=== PATIENT | female | born 1980 | race Caucasian/White ===

== ENCOUNTER 2024-12-25 12:57 | Outpatient (CLI) | payer OTHER, SELFPAY ==
--- NOTE | 2024-12-25 13:00 | MM_ITS ---
WS: [id number] BILATERAL 3D TOMOSYNTHESIS DIGITAL SCREENING MAMMOGRAPHY WITH CAD CLINICAL INFORMATION: SCREENING HISTORY: Screening mammogram. No current complaints. COMPARISON: Baseline TECHNIQUE: Bilateral CC and MLO views. FINDINGS: Scattered fibroglandular densities bilaterally. Indeterminate 8 mm nodular density lower outer LEFT breast. This may represent a lymph node but no comparisons. Recommend further evaluation LEFT breast diagnostic mammography and ultrasound. Unremarkable RIGHT breast. MM/MM scr BI tomosynthesis [id number] IMPRESSION: DENSITY: There are scattered areas of fibroglandular density. BI-RADS: 0 - Incomplete: Need additional imaging evaluation. FOLLOW UP: Need Additional Imaging Recommend LEFT breast diagnostic mammography and ultrasound if persistent.
== END 2024-12-25 12:58 | disposition home or self-care (01) ==
LOC: MOBLMAM 13:00
PROVIDERS: Visit Provider Obstetrics & Gynecology
DX: Z12.31 Encounter for screening mammogram for malignant neoplasm of breast (principal); R92.323 Mammographic fibroglandular density, bilateral breasts; N63.23 Unspecified lump in the left breast, lower outer quadrant
CPT/HCPCS: 77063; 77067

== ENCOUNTER 2025-02-06 09:15 | Outpatient (CLI) | payer OTHER, SELFPAY ==
--- NOTE | 2025-02-06 09:25 | MM_ITS ---
WS: [id number] LEFT 3D TOMOSYNTHESIS DIGITAL MAMMOGRAPHY WITH CAD CLINICAL INFORMATION: L BREAST ABNORMAL MAMMOGRAM HISTORY: Additional views TECHNIQUE: 3 views of the left breast were obtained. FINDINGS: Scattered fibroglandular densities of the left breast. Persistent 8 mm nodular density lower outer LEFT breast. Ultrasound described below. ULTRASOUND BREAST LEFT TECHNIQUE: Ultrasound left breast focused area of concern. CLINICAL INFORMATION: L BREAST ABNORMAL MAMMOGRAM FINDINGS: Ultrasound lower outer LEFT breast. At the 4 o'clock position LEFT breast 4 cm from the nipple there is a lobulated hypoechoic solid lesion with irregular margins. Posterior shadowing. This is taller than wide and has a suspicious appearance. Recommend further evaluation with ultrasound-guided biopsy. MM/MM diag LT tomosynthesis [id number] IMPRESSION: DENSITY: There are scattered areas of fibroglandular density. BI-RADS: 4 - Suspicious Finding - Biopsy Should Be Considered. FOLLOW UP: US Guided Biopsy Recommended Recommend ultrasound-guided biopsy of the LEFT breast lesion
== END 2025-02-06 09:16 | disposition home or self-care (01) ==
LOC: RAD 09:19
PROVIDERS: PCP Nurse Practitioner Family; Visit Provider Nurse Practitioner Family
DX: R92.8 Other abnormal and inconclusive findings on diagnostic imaging of breast (principal); R92.322 Mammographic fibroglandular density, left breast
CPT/HCPCS: 76642; 77061; 77063

== ENCOUNTER 2025-02-19 16:01 | Emergency (ER) | payer OTHER, SELFPAY ==
[2025-02-19 16:03] VITALS: BP 162/79; PULSE 91; RESP 16; TEMP 36.9; O2SAT 99; BMI 35.3
--- NOTE | 2025-02-19 16:18 | XRR_ITS ---
PROCEDURE INFORMATION: Exam: XR Chest Exam date and time: 02/19/2025 4:20 PM Age: 44 years old Clinical indication: Chest wall pain; Additional info: Left rib pain TECHNIQUE: Imaging protocol: Radiologic exam of the chest. Views: 1 view. COMPARISON: No relevant prior studies available. FINDINGS: Lungs: Left midlung zone atelectasis or scarring. Pleural spaces: Unremarkable. No pleural effusion. No pneumothorax. Heart/Mediastinum: Unremarkable. No cardiomegaly. Bones/joints: Unremarkable. XR/XR chest 1V portable [id number] IMPRESSION: No acute cardiopulmonary findings.
[2025-02-19 16:22] VITALS: BP 155/85; PULSE 82; O2SAT 98
--- NOTE | 2025-02-19 16:22 | ED_ITS ---
Documented by User: QUE Coronado 02/19/25 16:50 HPI - Back Pain/Injury General: Chief Complaint: Back Pain/Injury Stated Complaint: L shoulder pain going down back Time Seen by Provider: 02/19/25 16:12 Source: patient Mode of arrival: ambulatory Limitations: no limitations History of Present Illness: Patient is a 44-year-old female who presents emergency department with left shoulder pain that started on 02/17. 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 Pain wraps around the left chest region, worse with deep breathing and with any movements. No direct trauma. No other symptoms of concern at this time, her vitals are stable. She has been taking lyvd-xra-mjekghj pain medications with little relief. MD elicited complaint: other (Left shoulder/rib pain) Onset (ago): day(s) Timing: constant Associated symptoms: Deny abdominal pain, chills, fever(s), nausea or vomiting Treatments prior to arrival: NSAIDS Work related injury: Yes Related Data Previous Rx's ?Medication ?Instructions ?Recorded cyclobenzaprine 5 mg tablet 5 mg PO Q8H #10 tabs 02/19 Allergies Allergy/AdvReac Type Severity Reaction Status Date / Time No Known Allergies Allergy Verified 02/19/25 16:09 Review of Systems General: Reports: 10 or more systems reviewed and unremarkable except in HPI and below Const: Denies: fever(s) or chills Card: Denies: chest pain Resp: Denies: dyspnea or productive cough GI: Denies: abdominal pain, nausea, vomiting or diarrhea : Denies: flank pain Musc: Reports: joint pain (Left shoulder) and other (Left rib pain); Denies: neck pain, back pain, extremity pain, extremity swelling, joint swelling, joint redness, joint warmth, limited range of motion or muscle weakness Skin/Breast: Denies: rash Neuro: Denies: headache(s), numbness in extremities or weakness in extremities Physical Exam Const: COMMON NORMALS: no acute distress, patient oriented x3, no limitations, healthy appearing, alert and well nourished HENMT: COMMON NORMALS: normocephalic and atraumatic HEAD & SCALP: normocephalic and atraumatic Neck/C-Spine: COMMON NORMALS: full ROM, supple and no meningeal signs Chest: OTHER: Left lateral rib tenderness to palpation without step-off deformity Resp: COMMON NORMALS: normal respiratory effort and No use of accessory muscles Extremity: COMMON NORMALS: normal to inspection, full ROM, capillary refill normal, no joint enlargement and no clubbing, cyanosis or edema NARRATIVE EXTREMITY EXAM: Tender to palpation to left scapular spine region, no signs of trauma or deformity Neuro: COMMON NORMALS: patient oriented x3, moves all extremities, no focal motor deficits and no sensory deficits noted SENSORIUM/ORIENTATION: Yes alert MENINGEAL SIGNS: Yes no meningeal signs Skin: COMMON NORMALS: no rashes or lesions noted GENERAL SKIN EXAM: no rashes or lesions noted Course Vital Signs: Vital signs: Vital Signs Temperature 98.5 F 02/19/25 16:03 Pulse Rate 79 02/19/25 16:56 Respiratory Rate 16 02/19/25 16:03 Blood Pressure 132/78 02/19/25 16:56 Pulse Oximetry 98 02/19/25 16:56 Oxygen Delivery Me thod Room Air 02/19/25 16:22 MDM - Back Pain/Injury Medical Decision Making Patient presented for work-related injury, injuring her left upper back on 02/17. X-ray is negative, point tenderness to palpation to the posterior scapular spine as well as to the left lateral ribs, making this likely a strain versus possible costochondritis. X-ray negative. Conservative treatment discussed for home. Labs Radiology Impressions Chest X-Ray 02/19/25 16:18 IMPRESSION: No acute cardiopulmonary findings. All radiology interpretation(s) finalized by discharge Discharge Plan Discharge Patient Disposition: Home Clinical Impression: Work related injury Muscle strain of left upper back Qualifiers: Encounter type: initial encounter Qualified Code(s): S29.012A - Strain of muscle and tendon of back wall of thorax, initial encounter Condition: Stable Prescriptions: New cyclobenzaprine 5 mg tablet 5 mg PO Q8H Qty: 10 0RF Discharge Orders: Discharge ED (Routine); Ordered 02/19/25 Ordered By: Alexis Daily Referrals: Luanne Johnson FNP [Primary Care Provider, Nurse Practitioner] Patient Instructions: Patient Portal & Theron Instructions Activity Restrictions/Additional Instructions: Muscle laxer's as prescribed. Ice and heat alternating. Motrin and Tylenol. Follow-up with primary care. Work note is attached. 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 [employer] Fwd Documented by User: Kal Chavez DO 02/19/25 18:10 HPI - Back Pain/Injury General: Chief Complaint: Back Pain/Injury Stated Complaint: L shoulder pain going down back Time Seen by Provider: 02/19/25 16:12 Related Data Previous Rx's ?Medication ?Instructions ?Recorded cyclobenzaprine 5 mg tablet 5 mg PO Q8H #10 tabs 02/19 Allergies Allergy/AdvReac Type Severity Reaction Status Date / Time No Known Allergies Allergy Verified 02/19/25 16:09 Course Vital Signs: Vital signs: Vital Signs Temperature 98.5 F 02/19/25 16:03 Pulse Rate 79 02/19/25 16:56 Respiratory Rate 16 02/19/25 16:03 Blood Pressure 132/78 02/19/25 16:56 Pulse Oximetry 98 02/19/25 16:56 Oxygen Delivery Me thod Room Air 02/19/25 16:22 MDM - Back Pain/Injury Medical Decision Making Patient presented for work-related injury, injuring her left upper back on 02/17. X-ray is negative, point tenderness to palpation to the posterior scapular spine as well as to the left lateral ribs, making this likely a strain versus possible costochondritis. X-ray negative. Conservative treatment discussed for home. Chart reviewed Labs Radiology Impressions Chest X-Ray 02/19/25 16:18 IMPRESSION: No acute cardiopulmonary findings. Discharge Plan Discharge Patient Disposition: Home Clinical Impression: Work related injury Muscle strain of left upper back Qualifiers: Encounter type: initial encounter Qualified Code(s): S29.012A - Strain of muscle and tendon of back wall of thorax, initial encounter Condition: Stable Prescriptions: New cyclobenzaprine 5 mg tablet 5 mg PO Q8H Qty: 10 0RF Discharge Orders: Discharge ED (Routine); Ordered 02/19/25 Ordered By: Alexis Daily Referrals: Luanne Johnson, [employer]ACHINE TENDER [Primary Care Provider, Nurse Practitioner] Patient Instructions: Patient Portal & Theron Instructions Activity Restrictions/Additional Instructions: Muscle laxer's as prescribed. Ice and heat alternating. Motrin and Tylenol. Follow-up with primary care. Work note is attached. 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
--- OUTSIDE RECORDS SUMMARY | 2025-02-19 16:28 | XMS_ITS | Data Portability ---
Author Organization [facility], [place], [facility] Address [address] [address] Assessment No assessment recorded. Plan of Treatment Reminders Order Date Submit Date Provider Last Modified By Organization Details Last Modified Time Details Appointments None recorded. Lab None recorded. Referral None recorded. Procedures None recorded. Surgeries None recorded. Imaging None recorded. Medication Orders meloxicam 7.5 mg tablet 2022 023 [facility]/Pharmacy #[id number], [address] [facility] [facility], [facility], [place], [address], 3 09:05:08 Patient TargetsNo targets recorded. Patient InstructionsNo instructions recorded. Reason for Referral None Reported. Medical Equipment None Reported. Allergies No known drug allergies Medications Name Sig Start Date Stop Date Status Note LastModified by Organization Details LastModified Time amoxicillin 500 mg capsule two times daily 2022 active Recorded 3 10:51AM by Rowena Carter PA-C, Office Visit; Refill Quantity: 0; Not Available Not Available Not Available meloxicam 7.5 mg tablet Take 1 tablet every day by oral route for 14 days. 2022 active Not Available Not Available Not Avai lable Vitals Date Recorded Body weight Body mass index (BMI) Body height Oxygen saturation Heart rate Respiratory rate Body temperature Systolic And Diastolic Provider Name and Address Organization Details Last Updated DateTime 3 19729.8 g 33.9 kg/m2 162.56 cm 99 % 78 /min 19 /min 97.1 [degF] 145/72 mm[Hg] ANKUSH HINKLE [facility], [place] 3 08:48:32 Social History None recorded. Functional Status None recorded. Mental Status None recorded. Family History Nothing Reported. Medical History No medical history recorded. Gynecological HistoryNo gynecological history recorded. Obstetrics History GPAL:G 0 P 0 0 0 0 Past Encounters Encounter ID Performer Location Encounter Start Date Encounter Closed Date Diagnosis/Indication Diagnosis SNOMED-CT Code Diagnosis ICD10 Code Diagnosis IMO Codes Diagnosis Note [id number] [facility] ([facility]) [address] [place] [address] 01/24/2023 08:33:53 01/24/2023 13:50:17 Low back pain [id number] M54.50 Will start meloxicam today. Discussed with patient that she should perform light stretches at home twice daily as well as ice/heat as tolerated. Patient was given a hand out on light back stretches to perform at home. If no improvemen t in 1 week, should follow up with walk in for re-evaluat ed. Patient verbalizes understand ing. Health Concerns Section Related Observation LastModified by Organization Detai ls LastModified Time None Recorded Concern Status LastModified by Organization Details LastModified Time None Recorded Advance Directives Directive None Recorded Payers Insurance Date Sequence Insurance Name Policy Number Policy Pryor Covered Member ID Pryor Member ID Guarantor Name 01/24/2023 1 *SELF PAY* [place] Notes Date Note Type Note Provider Name and Address Organization Details Recorded Time 3 text/htm l Back PainReported by PatientHPIFor severity, patient reportsworsening,pain level 6/10,interferes with sleep, andinterferes with work. For location, patient reportsno radiation. For quality, patient reportssharpandthrobbing. For duration, patient reports3 days. For timing, patient reportsacute. For alleviating factors, patient reportsnone. For aggravating factors, patient reportsambulationandtwisting . For associated symptoms, patient reportsno fever,no weakness,no numbness,no tingling,no shortness of breath, andno gait instability.ROS as noted in the HPI Patient is a 42 year old female who presents to the walk in clinic today for right sided lower back pain. Patient states the pain started 3 days ago. Denies any injury. Has been taking ibuprofen with some relief. [employer], [employer] [address] [place], [address], [facility], [place] 01/24/2023 09:10:07 OBGyn Episode No OBEpisode recorded.
[2025-02-19] MEDS: orphenadrine 30 mg/mL Inj 2 mL 60 MG IM (16:34)
[2025-02-19 16:56] VITALS: BP 132/78; PULSE 79; O2SAT 98
== END 2025-02-19 16:57 | disposition home or self-care (01) ==
PROVIDERS: Emergency Provider Physician Assistant; PCP Nurse Practitioner Family
DX: S29.012A Strain of muscle and tendon of back wall of thorax, initial encounter (principal); X50.9XXA Other and unspecified overexertion or strenuous movements or postures, initial encounter; Y99.0 Civilian activity done for income or pay
CPT/HCPCS: 71045; 96372; 99284; J1885; J2360

== ENCOUNTER 2025-02-26 12:07 | Outpatient (CLI) | payer OTHER, SELFPAY | END 2025-02-26 12:08 | disposition home or self-care (01) | LOC: RAD 12:12 | PROVIDERS: PCP Nurse Practitioner Family; Visit Provider Nurse Practitioner Family | DX: R92.8 Other abnormal and inconclusive findings on diagnostic imaging of breast (principal); N60.32 Fibrosclerosis of left breast | CPT/HCPCS: 19083; 88305; 88342 ==